=== PATIENT | female | born 1950 | race Caucasian/White ===

== ENCOUNTER 2024-01-28 20:05 | Outpatient (CLI) | payer MEDICARE, MEDICAID | END 2024-01-28 23:59 | disposition critical access hospital (66) | LOC: EMS 20:05 | DX: M54.2 Cervicalgia (principal); S19.9XXA Unspecified injury of neck, initial encounter; W10.9XXA Fall (on) (from) unspecified stairs and steps, initial encounter; Y93.01 Activity, walking, marching and hiking | CPT/HCPCS: A0425; A0427 ==

== ENCOUNTER 2024-01-28 20:13 | Emergency (ER) | payer MEDICARE, MEDICAID ==
--- NOTE | 2024-01-28 20:29 | ED Physician Documentation ---
PD HPI MAJOR TRAUMA - Stated complaint Stated Complaint: GLF/NECK PX - Chief complaint Chief Complaint: Trauma Hd/Nk - History obtained from History obtained from: Patient - Additional information Additional information: 73-year-old woman history of diabetes, hypertension, and coronary bypass. For the last several months she has been feeling unsteady and received a presumptive diagnosis of parkinsonism from her physician. She is being referred to neurology but that has not yet happened. Today she was coming down the stairs and slipped and fell because of her unsteadiness. She hit her head but not too hard the main thing that hurts is her neck and upper back. PD PAST MEDICAL HISTORY - Present Medications Home Medications: Ambulatory Orders Medication Instructions Recorded Confirmed Atorvastatin Calcium 40 mg PO DAILY 01/28/24 01/28/24 Gabapentin [Neurontin] 100 mg PO TID 01/28/24 01/28/24 Losartan/Hydrochlorothiazide 1 tab PO DAILY 01/28/24 01/28/24 [Hyzaar 50-12.5 Tablet] Metformin HCl [Metformin ER 500 mg PO DAILY 01/28/24 01/28/24 Osmotic] traMADol [Ultram] 50 mg PO DAILY PRN 01/28/24 01/28/24 - Allergies Allergies/Adverse Reactions: Allergies Allergy/AdvReac Type Severity Reaction Status Date / Time No Known Drug Allergies Allergy Verified 01/28/24 20:24 PD ED PE NORMAL - Vitals Vital signs reviewed: Yes - General General: Alert and oriented X 3, No acute distress - HEENT HEENT: PERRL, EOMI - Neck Neck: Other (Diffuse cervical spine tenderness) - Cardiac Cardiac: RRR, No murmur - Respiratory Respiratory: No respiratory distress, Clear bilaterally - Abdomen Abdomen: Non tender - Back Back: Other (Tender to the upper thoracic spine) - Derm Derm: Normal color, Warm and dry - Extremities Extremities: No edema, No calf tenderness / cord - Neuro Neuro: Alert and oriented X 3, 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 She does have paranasal sinusitis. Relevant Findings:: Final report received, EMP independent interpretation of test CT of the cervical spine showing mild to moderate degenerative changes. No acute findings. Relevant Findings:: Final report received, EMP independent interpretation of test PD Medical Decision Making - ED course ED course: yo woman with poss beuro dz, ? Parkinsons with fall d/t unsteadiness tonight. Injury of head (mild) and C/T spine. [place] imaging neg. Pt comfortable with discharge. Understands need for PCP and neuro f/u. Departure - Departure Disposition: Home, Self Care Clinical Impression: Neck strain Qualifiers: Encounter type: initial encounter Qualified Code(s): S16.1XXA - Strain of muscle, fascia and tendon at neck level, initial encounter Back injury Qualifiers: Encounter type: initial encounter Qualified Code(s): S39.92XA - Unspecified injury of lower back, initial encounter Fall Qualifiers: Encounter type: initial encounter Qualified Code(s): W19.XXXA - Unspecified fall, initial encounter Injury of head and neck Qualifiers: Encounter type: initial encounter Qualified Code(s): S09.90XA - Unspecified injury of head, initial encounter Condition: Good Instructions: ED Sprain Strain Neck Comments: Try to use your walker religiously. Appropriate for you to follow-up with your primary care doctor and seek neurologic consultation given your unsteadiness and potential diagnosis of Parkinson's. Call your doctor to arrange a follow-up appointment, make the next available appointment. In the interim, return anytime if worse or if new symptoms develop. Forms: PCP List Discharge Date/Time: 01/28/24 22:36
--- NOTE | 2024-01-28 21:28 | CT Report ---
PROCEDURE: Head WO INDICATIONS: head inj TECHNIQUE: Noncontrast 4.5 mm thick angled axial sections acquired from the foramen magnum to the vertex. For r adiation dose reduction, the following was used: automated exposure control, adjustment of mA and/or kV according to patient size. COMPARISON: None. FINDINGS: Image quality: Excellent. CSF spaces: Basal cisterns are patent. No extra-axial fluid collections. Ventricles are normal in size and shape. Brain: No midline shift. No intracranial masses or hemorrhage. No area of hypodensity in a vascula r distribution to suggest acute infarction. There is periventricular hypodensity consistent with bin packer [place] microvascular ischemic disease. Age-related parenchymal loss. Skull and face: Calvarium and visualized facial bones are intact, without suspicious lesions. Sinuses: Mucosal thickening in the bilateral maxillary sinuses. Mucosal thickening in the left spheno id sinus and a few of the ethmoid sinuses. Mastoids are clear. IMPRESSION: No acute intracranial pathology. Paranasal sinusitis. Uncertain chronicity. Reviewed by: Emil Mcclelland MD on 01/28/2024 9:27 PM PDT Approved by: Emil Mcclelland MD on 01/28/2024 9:27 PM PDT Station ID: [id number]
--- NOTE | 2024-01-28 21:33 | CT Report ---
PROCEDURE: Cervical Spine WO INDICATIONS: neck inj TECHNIQUE: Noncontrast 3 mm thick sections acquired from the skull base to the T4 level. Sagittal and coronal r eformats were then constructed. For radiation dose reduction, the following was used: automated exp osure control, adjustment of mA and/or kV according to patient size. COMPARISON: None. FINDINGS: Image quality: Excellent. Bones: No fractures or dislocations. Mild to moderate degenerative change in the cervical spine. [place] s of expected lordosis. Post median sternotomy. Visualized superior ribs are intact. Soft tissues: Prevertebral soft tissues are normal in thickness. No paravertebral hematomas. No ap ical pneumothoraces. Subcentimeter left thyroid nodule. IMPRESSION: No acute osseous abnormality. Reviewed by: Emil Mcclelland MD on 01/28/2024 9:31 PM PDT Approved by: Emil Mcclelland MD on 01/28/2024 9:31 PM PDT Station ID: [id number]
[2024-01-28 21:34] VITALS: BP 95/63; O2SAT 94
--- NOTE | 2024-01-28 21:38 | CT Report ---
PROCEDURE: Thoracic Spine WO INDICATIONS: back inj TECHNIQUE: Noncontrast 3 mm thick sections acquired through the region of interest in the thoracic spine. Sagit irene and coronal reformats were then constructed. For radiation dose reduction, the following was used : automated exposure control, adjustment of mA and/or kV according to patient size. COMPARISON: Same day cervical spine. FINDINGS: Image quality: Excellent. Bones: There is normal overall bony alignment. No acute vertebral body compression fractures. Mild degenerative changes. No suspicious sclerotic or lytic bony lesions. T9 bone island. Central spinal c anal is of normal overall caliber. Soft tissues: No paravertebral masses or hematomas. Visualized posteromedial lungs appear clear. IMPRESSION: No compression fracture. Reviewed by: Emil Mcclelland MD on 01/28/2024 9:36 PM PDT Approved by: Emil Mcclelland MD on 01/28/2024 9:36 PM PDT Station ID: [id number]
== END 2024-01-28 22:36 | disposition home or self-care (01) ==
LOC: EDUNIT# → ED 20:13
DX: S09.90XA Unspecified injury of head, initial encounter (principal); S16.1XXA Strain of muscle, fascia and tendon at neck level, initial encounter; S39.92XA Unspecified injury of lower back, initial encounter; W10.9XXA Fall (on) (from) unspecified stairs and steps, initial encounter; I10 Essential (primary) hypertension; E11.9 Type 2 diabetes mellitus without complications; Z79.84 Long term (current) use of oral hypoglycemic drugs; Z91.81 History of falling; R26.81 Unsteadiness on feet
CPT/HCPCS: 99283; 99284